=== PATIENT | male | born 1935 | race Caucasian/White ===

== ENCOUNTER → 2019-01-14 | Outpatient (CLI) | payer OTHER ==
[~2019-01-14] VITALS: Ht 200.7 cm; Wt 79.4 kg
[~2019-01-14] MED LIST: ASPIR 8181 MG PO; COZAAR 25 MG TA25 M1 PO; FLOMAX0.4 MG PO; NORVASC10 MG PO; PRAVACHOL40 MG PO
[2019-01-14 08:53] VITALS: BP 147/873
== END | disposition home or self-care (01) ==
LOC: SPEC 06:27
DX: I65.23 Occlusion and stenosis of bilateral carotid arteries (principal); I70.1 Atherosclerosis of renal artery; I10 Essential (primary) hypertension; E78.5 Hyperlipidemia, unspecified; K21.9 Gastro-esophageal reflux disease without esophagitis; D64.9 Anemia, unspecified; M10.9 Gout, unspecified; Z87.440 Personal history of urinary (tract) infections; Z95.828 Presence of other vascular implants and grafts; Z98.890 Other specified postprocedural states; Z79.899 Other long term (current) drug therapy; Z87.891 Personal history of nicotine dependence; Z79.82 Long term (current) use of aspirin

== ENCOUNTER 2019-08-15 05:45 | Inpatient (IN) | payer OTHER ==
[2019-08-09 11:20] LABS: ABSOLUTE NEUTROPHILS 8.1 thou/uL (1.4-8.2); BASOPHILS 0.9 % (0.0-2.0); EOSINOPHILS 3.1 % (0.0-3.0); HEMATOCRIT 37.9 % (42.0-52.0); HEMOGLOBIN 12.7 gm/dL (14.0-18.0); LYMPHOCYTES 11.8 % (24.0-44.0); MCH 29.8 pg (26.0-34.0); MCHC 33.4 g/dL (28.0-37.0); MCV 89.3 fL (80.0-100.0); MONOCYTES 5.9 % (1.0-8.0); PLATELET COUNT 211 thou/uL (150-400); POLYS 78.3 % (36.0-66.0); RBC 4.24 mil/uL (4.50-6.00); RDW 13.4 % (10.5-14.5); WBC 10.4 thou/uL (4.0-11.0)
[2019-08-09 11:22] LABS: URINE BILIRUBIN NEGATIVE (Negative); URINE BLOOD NEGATIVE (Negative); URINE CLARITY CLEAR; URINE COLOR YELLOW; URINE GLUCOSE-RANDOM* NEGATIVE (Negative); URINE KETONES NEGATIVE (Negative); URINE NITRITE-REFLEX NEGATIVE (Negative); URINE PROTEIN (DIPSTICK) TRACE (Negative); URINE SPECIFIC GRAVITY 1.025 (1.005-1.035); URINE UROBILINOGEN 0.2 E.U./dl (0.2-1.0)
[2019-08-09 11:23] LABS: URINE LEUKOCYTES-REFLEX 1+ (Negative)
[2019-08-09 11:29] LABS: AMORPHOUS URATES Few /LPF (None Seen); BACTERIA-REFLEX 1-9 Few /HPF (None Seen); CRYSTALS None Seen /LPF (None Seen); HYALINE CASTS 0-3 Few /LPF (None Seen); SQUAMOUS 0-3 Few /LPF (0-3); URINE RBC None Seen /HPF (0-2); URINE WBC-REFLEX 6-15 Few /HPF (0-5)
[2019-08-09 11:29] LABS: APTT 31.3 Seconds (24.5-32.8); PROTIME 10.7 Seconds (9.3-11.4)
[2019-08-09 11:32] LABS: ALBUMIN 4.1 g/dL (3.4-5.0); CALCIUM 9.6 mg/dL (8.5-10.1); CREATININE 1.2 mg/dL (0.7-1.3); POTASSIUM 4.2 mmol/L (3.5-5.1); TOTAL BILIRUBIN 0.2 mg/dL (<0.1-1.0); TOTAL PROTEIN 7.6 g/dL (6.4-8.2)
--- NOTE | 2019-08-09 13:13 | EKG ---
[place] [address] [facility] [place] [address] ELECTROCARDIOGRAM REPORT Name: TEJA BAKER Room #: [facility] IN ..#: [id number] Admission: Attend Phys: Barrett Romero MD Discharge: Date of : 35 Report #: [id number] THIS REPORT FOR: //name// [facility] Test Date: 2019-08-09 Test Time: 11:24:41 Pat Name: TEJA BAKER Department: Room: Gender: Director Of Surgery: formerly [facility] : 1935 Requested By: Barrett Romero Order Number: [id number] MD: Leno Reid Measurements Intervals [place] Rate: 61 P: 57 DC: 189 QRS: 14 QRSD: 89 T: 34 QT: 401 QTc: 404 Interpretive Statements Sinus rhythm Normal tracing No previous ECG available for comparison Electronically Signed On 08-09-2019 13:13:17 SIGNAL MANAGER by Leno Reid [email or web address] <ELECTRONICALLY SIGNED> By: Leno Reid MD, [facility] 08/09/19 1313 [id number] Leno Reid MD, FACC /EPI
[2019-08-15] VITALS (16 sets, daily range): BP systolic 110–147; BP diastolic 40–68
[~2019-08-15] VITALS: Ht 170.2 cm; Wt 86.6 kg
--- NOTE | ~2019-08-15 | O ---
[facility] [place] [address] OPERATIVE REPORT Name: TEJA BAKER Room #: 247-P ADM IN M.R.#: [id number] Admission: 08/15/19 Attend Phys: Barrett Romero MD Discharge: Date of : 35 Report #: [id number] THIS REPORT FOR: //name// CC: Victor Manuel Romero Physician staff DATE OF SERVICE: 08/15/2019 PREOPERATIVE DIAGNOSIS: Right carotid artery restenosis. POSTOPERATIVE DIAGNOSIS: Right carotid artery restenosis. OPERATION: Transcarotid arterial revascularization with arteriography. SURGEON: Dr. Barrett Romero and Dr. Victor Manuel Varghese. ANESTHESIA: General. INDICATIONS: The patient is a man who had right carotid endarterectomy approximately 18 years ago. The patient had a restenosis that was treated with stent placement and this stent now has restenosis with combination of the stent and the distal nature of the lesion makes this high risk and makes ____ the preferred option. FINDINGS AND TECHNIQUE: After general anesthesia was established, an incision was made above the right clavicle using the proximal portion of the old incision. The incision was extended between the heads of the sternocleidomastoid muscle and the common carotid artery was identified and controlled. The carotid artery pursestring was placed and then heparin was given. At this time, the left femoral vein was accessed with the vascular needle and guidewire, sheath and dilators were placed for the venous access for the ultimate ____ AV fistula. After the heparin was given, the arterial needle was also placed in the common carotid and the guidewire was passed and then the introducer sheath was placed, so that the stiff wire could be placed for the arterial side of the ____ AV fistula. The AV fistula was attached and good flow was ascertained. The common carotid was occluded proximal to the AV fistula and an arteriogram [facility] [address] [place] [address] OPERATIVE REPORT Name: TEJA BAKER Room #: 247-P [facility] IN M.R.#: [id number] Admission: 08/15/19 Attend Phys: Barrett Romero MD Discharge: Date of : 35 Report #: [id number] was done that showed lesion. The stiff wire had been placed up the internal carotid and predilatation was done with a 4 x 30 Cordis balloon. At this point, the 8 x 40 Enroute stent was deployed and then a 6 x 30 Cordis balloon was used for post-dilatation. We waited 3 minutes and then a final arteriogram was taken. Two views of this were done that showed that the stent was in good position and there was good correction of the restenotic lesion. Satisfied with this, the common carotid occlusion was released. The AV fistula was dismantled and removed from the common carotid. The pursestring was pulled tight and then an additional stitch was placed for hemostasis. The femoral component was removed and pressure was applied. Protamine was given to reverse the heparin. When hemostasis was satisfactory, the wound was closed in layers and the patient was taken to the recovery area in good condition having tolerated the procedure well. All counts reported as correct. By: 0811 0905 Barrett Romero MD /nt
[~2019-08-15 05:45] MED LIST changes: +ACID CONTROLLER20 MG PO; +ASPIRIN325 PO; +BENADRYL25 MG PO; +CLARITIN10 M3 PO; +COZAAR100 MG PO; +PLAVIX 75 MG TA75 MG PO; +PRAVASTATIN SOD80 MG PO; +PREDNISONE 20 M20 MG PO; +TYLENOL ARTHRI650 MG PO; +VITAMIN B-121000 MC3 PO
--- NOTE | 2019-08-15 11:50 | NUR ---
ADMITTED TO ICU BED 247 FROM PACU POST CAROTID WITH WILLIAM IN RT RADIAL ARTERY, DRESSINGS ARE CLEAN, DRY AND INTACT. ATTACHED TO HALAL MEAT PACKER AND LINE ZEROED AND ASSESSMENT COMPLETED.
--- NOTE | 2019-08-15 19:20 | NUR ---
PT ARRIVED FROM PACU AT NOON. PLACED ON MONITOR. CARDENE GTT. GROIN AND JUGULAR SITE INTACT. PT PAIN RELIEVED WITH PRN NORCO. FAMILY HOME FOR THE NIGHT. PT RESTING WATCHING FOOTBALL IN BED. MARILOU DIET.
[2019-08-16 06:32] LABS: HEMATOCRIT 29.4 % (42.0-52.0); HEMOGLOBIN 9.6 gm/dL (14.0-18.0); MCH 29.5 pg (26.0-34.0); MCHC 32.8 g/dL (28.0-37.0); MCV 89.9 fL (80.0-100.0); RBC 3.28 mil/uL (4.50-6.00); RDW 13.5 % (10.5-14.5); WBC 23.6 thou/uL (4.0-11.0)
--- NOTE | 2019-08-16 06:34 | NUR ---
PT REMAINS NEURO INTACT. NO FURTHER C/O OF RT ARM NUMBNESS, ART LINE INTACT. HAND WARM. DENIES SURGICAL PAIN. RT NECK AND LT GROIN DRSG D/I. MARILOU PO FLUIDS. GOOD UO. CARDENE REMAINED OFF DURING NOC, WITH SBP 120-130'S. CONT PLAN OF CARE. PROGRESSING TOWARD GOALS
[2019-08-16 06:41] LABS: CALCIUM 7.8 mg/dL (8.5-10.1); CREATININE 1.3 mg/dL (0.7-1.3); POTASSIUM 4.7 mmol/L (3.5-5.1)
[2019-08-16 08:17] VITALS: BP 118/47
[2019-08-16 10:55] VITALS: BP 122/45
[2019-08-16 11:02] VITALS: BP 122/45
[2019-08-16 11:59] VITALS: BP 116/42
--- NOTE | 2019-08-16 13:31 | NUR ---
PT A/OX4, GOOD APPETITE, AMBULATED IN HALLWAY, NO PAIN, VITAL SIGNS STABLE. COTTO DC AT 1000, PTS INTAKE 900ML, PT OUTPUT
[2019-08-16 14:08] VITALS: BP 160/63
[2019-08-16 21:15] VITALS: BP 123/58
--- NOTE | 2019-08-17 04:49 | NUR ---
ASSUMED CARE AT 1900. PT ALERT AND ORIENTED. UP AD MARLY. DENIES CHEST PAIN, SOB, N/V/D.VSS. PROCEDURE SITES, RIGHT NECK AND LEFT GROIN SITE C/D/I. NOTED SOME SWELLING TO THE NECK SITE. DENIES PAIN, NO BLEEDING OR EVIDENCE OF HEMATOMA. POSSIBLE TO DC THIS AM. GREAT OUTPUT OVER NIGHT. NO FURTHER CONCERNS. WILL CONTINUE TO MONITOR.
[2019-08-17 06:13] LABS: CREATININE 1.4 mg/dL (0.7-1.3); POTASSIUM 4.6 mmol/L (3.5-5.1)
[2019-08-17 07:23] VITALS: BP 137/52
[2019-08-17 10:08] VITALS: BP 137/52
--- NOTE | 2019-08-17 11:12 | NUR ---
ASSUMED CARE AT 0700, SHIFT ASSESSMENT DONE, MEDS GIVEN, DENIES PAIN, NAUSEA, VOMITING. DISCHARGE ORDER RECEIVED, PERIPHERAL IV AND TELE WAS TAKEN OUT FAMILY CAME AT 1030 AND PT LEFT WITH FAMILY.
--- NOTE | 2019-08-17 11:53 | NUR ---
ORDER REC'D FOR OT EVAL. PATIENT HAS BEEN UP AD MARLY AND FULLY DRESSED ACCORDING TO PHYSICAL THERAPY EVAL. NSG STATES THAT PATIENT IS READY TO GO HOME AND HAS NOT REQUIRED ASSIST W/SELFCARES. PHYSICAL THERAPY CORROBORATES THIS WELL. PATIENT DISCHARGED FROM OT W/O CHARGES.
--- NOTE | 2019-08-17 12:09 | NUR ---
sp with RN who intially believed phys ordered HH but possible mistake. Orders for dc are Home Health but dc summary has no orders for HH or Face to Face. patient reports he does not want or need HH. RN has called phys but at this time no return call. Plan dc home independently.
== END 2019-08-17 10:37 | disposition home or self-care (01) | DRG 253 ==
LOC: ICU 05:45 → TBA 05:45 → PRE 09:45 → TBA 10:20 → ICU 12:27 → TBA 12:55 → 2N 08-16 18:18 → ENTRNSPT 08-17 10:30 → 2N 08-17 10:37
PROVIDERS: Physician Assistant; ADMIT Surgery Vascular Surgery
PROC: 037K3DZ Dilation of Right Internal Carotid Artery with Intraluminal Device, Percutaneous Approach (ICD-10-PCS; principal; 2019-08-15)
PROC: B3131ZZ Fluoroscopy of Right Common Carotid Artery using Low Osmolar Contrast (ICD-10-PCS; principal; 2019-08-15)
DX: T82.856A Stenosis of peripheral vascular stent, initial encounter (principal); D62 Acute posthemorrhagic anemia; I10 Essential (primary) hypertension; E78.5 Hyperlipidemia, unspecified; Y83.8 Other surgical procedures as the cause of abnormal reaction of the patient, or of later complication, without mention of misadventure at the time of the procedure; Y82.8 Other medical devices associated with adverse incidents; M50.30 Other cervical disc degeneration, unspecified cervical region; K21.9 Gastro-esophageal reflux disease without esophagitis; M10.9 Gout, unspecified; Z87.440 Personal history of urinary (tract) infections; Y92.89 Other specified places as the place of occurrence of the external cause; Z91.041 Radiographic dye allergy status; Z82.49 Family history of ischemic heart disease and other diseases of the circulatory system; Z83.3 Family history of diabetes mellitus; Z79.899 Other long term (current) drug therapy
CPT/HCPCS: 10078; 10081; 47375; 48888; 50010; 50101; 50386; 50417; 50455; 51751; 54118; 56524; 56526; 56527; 56528; 56531; 62110; 62900; 65020; 65040; 70005

== ENCOUNTER 2019-08-23 14:45 | Inpatient (IN) | payer OTHER ==
[2019-08-23] VITALS (8 sets, daily range): BP systolic 109–178; BP diastolic 35–48
[~2019-08-23] VITALS: Ht 167.6 cm; Wt 87.3 kg
[2019-08-24] VITALS (17 sets, daily range): BP systolic 106–156; BP diastolic 35–67
[2019-08-24 05:35] LABS: HEMATOCRIT 32.8 % (42.0-52.0); HEMOGLOBIN 10.6 gm/dL (14.0-18.0); MCH 29.1 pg (26.0-34.0); MCHC 32.3 g/dL (28.0-37.0); MCV 90.2 fL (80.0-100.0); RBC 3.63 mil/uL (4.50-6.00); RDW 13.6 % (10.5-14.5); WBC 13.7 thou/uL (4.0-11.0)
[2019-08-24 05:39] LABS: CALCIUM 8.5 mg/dL (8.5-10.1); CREATININE 1.4 mg/dL (0.7-1.3); POTASSIUM 4.7 mmol/L (3.5-5.1)
--- NOTE | 2019-08-24 06:37 | NUR ---
PT ALERT AND ORIENTED. PT ABLE TO CHEW AND SWALLOW REGULAR DIET. PT STILL ON CARDENE DRIP THIS AM. UNSUCCESSFUL TO TITRATE IT DOWN. PT AFEBRILE. NO COMPLAINTS OF PAIN THIS AM. MINIMAL ADEQUATE URINE OUTPUT THROUGHOUT THE NIGHT. PICCO DRESSING MODERATELY SATURATED WITH DARK RED DRAINAGE. 2 L NC. CHART CHECK. REPORT GIVEN TO ONCOMING RN.
--- NOTE | 2019-08-24 13:56 | O ---
[facility] [place] [address] OPERATIVE REPORT Name: TEJA BAKER Room #: 240-P ADM IN M.R.#: [id number] Admission: 08/23/19 Attend Phys: Barrett Romero MD Discharge: Date of : 35 Report #: [id number] THIS REPORT FOR: //name// CC: RADHA Romero Physician staff DATE OF SERVICE: 08/23/2019 PREOPERATIVE DIAGNOSIS: Right neck hematoma. POSTOPERATIVE DIAGNOSIS: Right neck hematoma. OPERATIONS: Exploration of right neck and emergency evacuation of hematoma. SURGEON: Barrett Romero MD ANESTHESIA: General. INDICATIONS: The patient is an 84-year-old who last week had a transcarotid arterial revascularization. The patient had a satisfactory hospital convalescence and had done well at home, but he reports that yesterday his neck began to swell and he came to the office today with evidence of a large hematoma in the base of the right neck. The previous procedure was reoperative procedure done after not only a previous right carotid endarterectomy, but previous carotid stent placement. The patient has been maintained on aspirin and Plavix per TKR protocol. TECHNIQUE: After general anesthesia was established, the right neck incision was opened. There was old hematoma seen in the subcutaneous and perimuscular spaces. We also spread apart the heads of the sternocleidomastoid muscle to expose all the way down to the carotid artery. The bulk of the hematoma appeared to be superficial to the sternocleidomastoid, however. Hematoma was evacuated and the wound was irrigated with warm saline. The artery itself appeared to be without evidence of active bleeding and there was well formed fibrin around it. Hemostasis was ascertained. A drain was brought out through the lower pole of the incision and the wound was closed in layers with interrupted Vicryl for the platysma and Monocryl for the skin. The patient tolerated the procedure well [address] [place] [address] OPERATIVE REPORT Name: TEJA BAKER Room #: 240-P [facility] IN .R.#: [id number] Admission: 08/23/19 Attend Phys: Barrett Romero MD Discharge: Date of : 35 Report #: [id number] and was returned to the recovery area in good condition. All counts reported as correct. <ELECTRONICALLY SIGNED> By: Barrett Romero MD 08/24/19 1356 [id number] 1651 Barrett Romero MD /nt
--- NOTE | 2019-08-24 16:34 | NUR ---
ASSUMED [id number], PT IS A/O TIMES 4, DENIES PAIN ORDISCOMFORT. DRESSING CHANGE TO RIGH NECK DONE BY DR VELA. PT AFIBRILE, VSS. COTTO TAKEN OUT [id number], PT HAVING TROUBLE EMPTYING BLADDER. DR VELA NOTIFIED, BLADDER SCAN ORDERED. PT WITH XFER TO CCU. REPORT CALLED [facility] ACCEPTING NURSE.NURSE INFORMED ON BLADDER SCAN ORDER AND HESTATED HE WILL DO IT. FAMILY MEMBERS INFORMED OF PT XFER TO CCU.
--- NOTE | 2019-08-24 20:42 | NUR ---
ASSUMED CARE AT 1700, SHIFT ASSESSMENT DONE, MEDS GIVEN, VSS. DENIES PAIN, NAUSEA, VOMITING. NSR ON TELE. DRESSING TO RIGHT NECK CLEAN, DRY, INTACT. WILL CONTINUE TO ASSESS AND ASSIST WITH ADLs NEEDED.
--- NOTE | 2019-08-24 21:00 | NUR ---
BRICKLAYER APPRENTICE ACTIVATED FOR CHEST PAIN. ABD ALSO NOTED TO BE DISTENDED. PT STATES NO BM TODAY WHICH IS ABNORMAL FOR HIM, FEELS "BLOATED." PT REPOSITIONED AND ABLE TO BURP, PASS GAS. PT STATED HE FELT BETTER AFTER THIS. SEE RAPID RESPONSE INTERVENTION FOR FURTHER DOCUMENTATION. PT STATES PAIN 0/10.
[2019-08-25] VITALS: BP 140/65
[2019-08-25 04:00] VITALS: BP 139/66
[2019-08-25 07:45] VITALS: BP 130/58
--- NOTE | 2019-08-25 08:44 | EKG ---
[place] [address] [facility] [place] [address] ELECTROCARDIOGRAM REPORT Name: TEJA BAKER Room #: 202-P ADM IN M.R.#: [id number] Admission: 08/23/19 Attend Phys: Barrett Romero MD Discharge: Date of : 35 Report #: [id number] THIS REPORT FOR: //name// [facility] Test Date: 2019-08-24 Test Time: 20:47:47 Pat Name: TEJA BAKER Department: Room: 202 P Gender: M Customs Inspector: Zoey NARAYANAN : 1935 Requested By: Barrett Romero Order Number: [id number] MD: Leno Reid Measurements Intervals [place] Rate: 98 P: 88 AR: 187 QRS: 47 QRSD: 92 T: 42 QT: 351 QTc: 449 Interpretive Statements Sinus rhythm Nonspecific ST segment abnormality Compared to ECG 08/09/2019 11:24:[address] segment abnormality is now present Electronically Signed On 08-25-2019 8:43:24 STRENGTH AND CONDITIONING COACH by Leno Reid [email or web address] <ELECTRONICALLY SIGNED> By: Leno Reid MD, [facility] 08/25/19 0843 [id number] 46 Leno Reid MD, [facility] /EPI
[2019-08-25 11:20] VITALS: BP 126/56
--- NOTE | 2019-08-25 12:23 | NUR ---
ASSUMED CARE AT SHIFT CHANGE, ASSESSMENT DOCUMENTED, AND VSS. DENEIES ANY CP OR DISCOMFORT. PRATIMA DRESSING INTACT AND HAS AN OLD BLOODY DRAINGE. UP WALKING THE HALLWAYS, AND WAITING FOR DISCHARGE ORDERS. WILL CONTINUE WITH POC.
--- NOTE | 2019-08-25 13:30 | NUR ---
ORDERS RECEIVED FOR PT EVAL AND TREAT. Pt WITH EMERGENT EVACUATION OF LARGE R HEMATOMA IN NECK YESTERDAY WITH DR. VELA. Pt S/P R TRANSCAROTID ARTERY REVASCULARIZATION ON 08/15/[address] VELA D/T RESTENOSIS FOLLOWING R CAROTID ENDARTERECTOMY YEARS AGO. Pt LIVES WITH IN APT WITH ELEVATOR ACCESS. INDEP WITH ADLs. USES NO GAIT AIDS. DENIED RECENT FALLS. Pt REPORTED NO PAIN AT TIME OF THIS ASSESSMENT. Pt WAS VISUALIZED EARLIER TODAY BY THIS PT TO BE WALKING IN HALLWAYS OF UNIT WITH STEADY RECIPROCAL GAIT. Pt HAS DRESSING TO R SIDE OF HIS NECK S/P SURGERY. Pt DECLINED NEED FOR PT AT THIS TIME. ENCOURAGED TO CONTINUE MOBILIZING/WALKING IN HALLWAYS SEVERAL TIMES/DAY. NO FURTHER ACUTE PT NEEDS. ACUTE PT TO SIGN OFF.
[2019-08-25] MEDS ORDERED: ASA81BEC PO (13:45)
[2019-08-25 13:52] VITALS: BP 126/56
== END 2019-08-25 14:22 | disposition home or self-care (01) | DRG 909 ==
LOC: GI 14:45 → TBA 14:46 → ICU 17:42 → GI 17:43 → 2N 08-24 16:12 → ENTRNSPT 08-25 13:57 → EDTRNSPTSTS 08-25 14:09 → 2N 08-25 14:22
PROVIDERS: ADMIT Surgery Vascular Surgery
PROC: 0K9200Z Drainage of Right Neck Muscle with Drainage Device, Open Approach (ICD-10-PCS; principal; 2019-08-23)
DX: L76.32 Postprocedural hematoma of skin and subcutaneous tissue following other procedure (principal); I65.29 Occlusion and stenosis of unspecified carotid artery; I25.10 Atherosclerotic heart disease of native coronary artery without angina pectoris; I10 Essential (primary) hypertension; E78.5 Hyperlipidemia, unspecified; M10.9 Gout, unspecified; K21.9 Gastro-esophageal reflux disease without esophagitis; J32.9 Chronic sinusitis, unspecified; Z82.49 Family history of ischemic heart disease and other diseases of the circulatory system; Z95.828 Presence of other vascular implants and grafts; Z87.440 Personal history of urinary (tract) infections; Z83.3 Family history of diabetes mellitus; I25.2 Old myocardial infarction; Z91.041 Radiographic dye allergy status; Z79.899 Other long term (current) drug therapy
CPT/HCPCS: 10078; 10081; 10204; 50010; 50101; 50386; 50417; 51301; 52287; 56524; 56526; 56528; 57254; 62110; 62900; 65020; 65040; 70005

== ENCOUNTER 2019-08-26 15:35 | Emergency (ER) | payer OTHER ==
[~2019-08-26] VITALS: Ht 170.2 cm; Wt 79.4 kg
[~2019-08-26 15:35] MED LIST changes: +ASA81BEC PO
[2019-08-26 16:38] LABS: HEMATOCRIT 30.8 % (42.0-52.0); HEMOGLOBIN 10.1 gm/dL (14.0-18.0); MCH 29.4 pg (26.0-34.0); MCHC 32.7 g/dL (28.0-37.0); MCV 90.1 fL (80.0-100.0); PLATELET COUNT 138 thou/uL (150-400); RBC 3.42 mil/uL (4.50-6.00); WBC 25.9 thou/uL (4.0-11.0)
[2019-08-26 16:47] LABS: CALCIUM 8.3 mg/dL (8.5-10.1); CREATININE 1.2 mg/dL (0.7-1.3); POTASSIUM 3.9 mmol/L (3.5-5.1)
[2019-08-26 16:52] LABS: ALBUMIN 3.4 g/dL (3.4-5.0); TOTAL BILIRUBIN 0.7 mg/dL (<0.1-1.0); TOTAL PROTEIN 6.7 g/dL (6.4-8.2)
[2019-08-26 17:12] LABS: ABSOLUTE NEUTROPHILS 23.6 thou/uL (1.4-8.2); METAMYELOCYTES 1 %; MYELOCYTES 1 %
[2019-08-26 17:13] LABS: PLATELET ESTIMATE SLIGHTLY DECREASED
[2019-08-26 17:14] LABS: ANISOCYTOSIS SLIGHT; TOXIC GRANULATION SLIGHT
[2019-08-26 17:58] LABS: URINE BILIRUBIN NEGATIVE (Negative); URINE BLOOD 1+ (Negative); URINE CLARITY CLEAR; URINE COLOR YELLOW; URINE GLUCOSE-RANDOM* NEGATIVE (Negative); URINE KETONES NEGATIVE (Negative); URINE PROTEIN (DIPSTICK) 1+ (Negative); URINE UROBILINOGEN 0.2 E.U./dl (0.2-1.0)
[2019-08-26 17:59] LABS: URINE LEUKOCYTES-REFLEX 1+ (Negative); URINE NITRITE-REFLEX POSITIVE (Negative)
[2019-08-26 18:05] LABS: SQUAMOUS 0-3 Few /LPF (0-3); URINE WBC-REFLEX >25 Many /HPF (0-5)
[2019-08-26 18:06] LABS: CASTS None Seen /LPF (None Seen); CRYSTALS None Seen /LPF (None Seen); URINE RBC 3-10 Few /HPF (0-2); WBC CLUMPS Few (None Seen)
[2019-08-26 22:44] VITALS: BP 151/49
== END 2019-08-26 22:45 | disposition short-term general hospital (02) ==
LOC: ER 15:35
PROVIDERS: Emergency Medicine
DX: T81.49XA Infection following a procedure, other surgical site, initial encounter (principal); L02.11 Cutaneous abscess of neck; N39.0 Urinary tract infection, site not specified; R50.9 Fever, unspecified; I10 Essential (primary) hypertension; E78.5 Hyperlipidemia, unspecified; K21.9 Gastro-esophageal reflux disease without esophagitis; Z86.2 Personal history of diseases of the blood and blood-forming organs and certain disorders involving the immune mechanism

== ENCOUNTER → 2019-09-13 | Outpatient (CLI) | payer OTHER | LOC: SJCVCIMAG 11:59 | DX: I65.22 Occlusion and stenosis of left carotid artery (principal); I73.9 Peripheral vascular disease, unspecified; I25.10 Atherosclerotic heart disease of native coronary artery without angina pectoris; I10 Essential (primary) hypertension; E78.00 Pure hypercholesterolemia, unspecified; I35.0 Nonrheumatic aortic (valve) stenosis; K21.9 Gastro-esophageal reflux disease without esophagitis; Z82.49 Family history of ischemic heart disease and other diseases of the circulatory system; Z87.891 Personal history of nicotine dependence ==

== ENCOUNTER → 2020-01-05 | Outpatient (CLI) | payer OTHER | LOC: SJCVC 13:06 | PROVIDERS: ATTEND Internal Medicine | DX: I44.0 Atrioventricular block, first degree (principal); I25.10 Atherosclerotic heart disease of native coronary artery without angina pectoris; I10 Essential (primary) hypertension; E11.9 Type 2 diabetes mellitus without complications; E78.5 Hyperlipidemia, unspecified; I73.9 Peripheral vascular disease, unspecified; K21.9 Gastro-esophageal reflux disease without esophagitis; M10.9 Gout, unspecified; Z82.49 Family history of ischemic heart disease and other diseases of the circulatory system; Z79.899 Other long term (current) drug therapy; Z87.891 Personal history of nicotine dependence ==

== ENCOUNTER → 2020-03-15 | Outpatient (CLI) | payer OTHER | LOC: SJCVCIMAG 10:50 | PROVIDERS: ATTEND Nuclear Medicine Nuclear Cardiology | DX: I65.22 Occlusion and stenosis of left carotid artery (principal); I73.9 Peripheral vascular disease, unspecified; I25.10 Atherosclerotic heart disease of native coronary artery without angina pectoris; E78.00 Pure hypercholesterolemia, unspecified; E11.9 Type 2 diabetes mellitus without complications; I10 Essential (primary) hypertension; Z98.890 Other specified postprocedural states; Z95.828 Presence of other vascular implants and grafts; Z79.899 Other long term (current) drug therapy; Z87.891 Personal history of nicotine dependence ==

== ENCOUNTER → 2020-05-15 | Outpatient (CLI) | payer OTHER | LOC: SJCVCIMAG 07:08 | PROVIDERS: ATTEND Nuclear Medicine Nuclear Cardiology | DX: I08.0 Rheumatic disorders of both mitral and aortic valves (principal); I11.9 Hypertensive heart disease without heart failure; E78.5 Hyperlipidemia, unspecified; E11.9 Type 2 diabetes mellitus without complications; E78.00 Pure hypercholesterolemia, unspecified; Z79.899 Other long term (current) drug therapy; Z87.891 Personal history of nicotine dependence ==

== ENCOUNTER → 2020-11-16 | Outpatient (CLI) | payer OTHER | LOC: SJCVC 10:40 | PROVIDERS: ATTEND Internal Medicine | DX: R00.1 Bradycardia, unspecified (principal); I35.0 Nonrheumatic aortic (valve) stenosis; I10 Essential (primary) hypertension; I65.23 Occlusion and stenosis of bilateral carotid arteries; E78.5 Hyperlipidemia, unspecified; E11.9 Type 2 diabetes mellitus without complications; K21.9 Gastro-esophageal reflux disease without esophagitis; M10.9 Gout, unspecified; Z86.16 Personal history of COVID-19; Z87.891 Personal history of nicotine dependence; Z79.82 Long term (current) use of aspirin; Z79.899 Other long term (current) drug therapy; Z88.8 Allergy status to other drugs, medicaments and biological substances ==

== ENCOUNTER → 2021-05-28 | Outpatient (CLI) | payer OTHER | LOC: SJCVCIMAG 14:43 | PROVIDERS: ATTEND Internal Medicine | DX: I65.23 Occlusion and stenosis of bilateral carotid arteries (principal); Z95.5 Presence of coronary angioplasty implant and graft ==

== ENCOUNTER → 2021-09-11 | Outpatient (CLI) | payer OTHER | LOC: SJCVCIMAG 13:38 | PROVIDERS: ATTEND Internal Medicine | DX: I08.0 Rheumatic disorders of both mitral and aortic valves (principal) ==